=== PATIENT | female | born 2005 | race Caucasian/White ===

== ENCOUNTER 2024-11-30 14:22 | Emergency (ER) | payer OTHER ==
[2024-11-30] MEDS: IBUPROFEN 600 MG TAB PO STA (15:19)
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
[2024-11-30 16:24] VITALS: BP 105/68; PULSE 76; RESP 19; TEMP 98.7
== END 2024-11-30 17:06 | disposition home or self-care (01) ==
LOC: EC 14:22
DX: S60.222A Contusion of left hand, initial encounter (principal); Z87.891 Personal history of nicotine dependence; Z88.0 Allergy status to penicillin; V43.52XA Car driver injured in collision with other type car in traffic accident, initial encounter
CPT/HCPCS: 99283